=== PATIENT | male | born 1945 | race Caucasian/White ===

== ENCOUNTER 2017-09-21 17:59 | Emergency (ER) | payer BC ==
[2017-09-21 18:17] VITALS: TEMP 98.2
--- NOTE | 2017-09-21 18:43 | CPEKG ---
Heart Rate: 84 RR Interval: 714 P-R Interval: 160 QRSD Interval: 116 QT Interval: 404 QTC Interval: 478 P Alma: 52 QRS Alma: 52 T Wave Alma: 47 EKG Severity - ABNORMAL ECG - EKG Impression: SINUS RHYTHM EKG Impression: NONSPECIFIC INTRAVENTRICULAR CONDUCTION DELAY EKG Impression: MINIMAL ST DEPRESSION, ANTEROLATERAL LEADS Electronically Signed By: Elinor Payne 21-Sep-2017 20:36:44
--- NOTE | 2017-09-21 18:49 | EDPHY ---
H & P Time Seen by Provider: 09/21/17 18:39 HPI/ROS: CHIEF COMPLAINT: Abnormal EKG HISTORY OF PRESENT ILLNESS: Patient is a 72-year-old male with a history of high cholesterol hypertension who presents to the emergency department with an abnormal EKG. The patient went in for his routine annual physical exam. Was sent home from the physician's office and then called because he had abnormal EKG. Patient reports a recent gout flare for the last 3 days. Is primarily in his ankles. Patient has had minimal shortness of breath. No cough. No fever. The patient denies chest pain. No nausea, vomiting or diaphoresis. Patient denies any calf pain or swelling. He has had mild ankle pain and swelling which he attributes to his gouty flare REVIEW OF SYSTEMS: My complete review of systems is negative except as mentioned in the HPI. Past Medical/Surgical History: Includes gout, high cholesterol, hypertension, BPH Smoking Status: Never smoked Physical Exam: Vitals noted GENERAL: Well-appearing, in no acute distress, alert. HEENT: Eyes normal to inspection, normal pharynx, no signs of dehydration. NECK: No thyromegaly, no lymphadenopathy, supple. RESPIRATORY: Clear to auscultation bilaterally, no rales, rhonchi or wheezing. CVS: Regular rate and rhythm, no rubs, murmurs, or gallops. ABDOMEN: Soft, nontender, nondistended, no organomegaly. BACK: Normal to inspection, no CVA tenderness. SKIN: Normal color, no rash, warm, dry. No pallor. EXTREMITIES: No pedal edema, no calf tenderness, no Homans sign or cords, mild right ankle swelling. NEURO/PSYCH: Alert and oriented x3, normal mood and affect, normal motor sensory exam. Constitutional: Initial Vital Signs Temperature (C) 36.8 C 09/21/17 18:14 Heart Rate 89 09/21/17 18:14 Respiratory Rate 18 09/21/17 18:14 Blood Pressure 138/82 H 09/21/17 18:14 O2 Sat (%) 96 09/21/17 18:14 O2 Delivery Mode Room Air Allergies/Adverse Reactions: No Known Allergies Allergy (Verified 09/21/17 18:11) Home Medications: Medication Instructions Recorded Avodart 11/23/09 Lisinopril/Hctz 10 mg/12.5 mg 11/23/09 Allopurinol 09/21/17 Atorvastatin Calcium 09/21/17 Dustasteride 09/21/17 Meloxicam 09/21/17 Medical Decision Making ED Course/Re-evaluation: In the emergency department I discussed possible etiologies with patient. I answered all his questions. IV was placed. Laboratory studies were obtained. Patient was given aspirin 325 mg orally. An EKG was obtained EKG: Sinus rhythm at 84. Normal axis. Normal intervals. Minimal ST depression V4 through V6 Troponin negative. CBC and chemistry unremarkable. I discussed the laboratory results with the patient. I paged Cardiology. I discussed the EKG with Dr. Andino from Cardiology. He recommended the patient be discharged and be seen as an outpatient this week. Patient had a CT of his chest. I intended to order chest x-ray but is CT scan was ordered. I discussed this with the patient. He felt the patient could follow up in clinic. I discussed this with the patient. He was asymptomatic. He was given warnings prior to leaving. He will return with worsening symptoms. Differential Diagnosis: Differential includes but is not limited to ACS, acute PR, pericarditis, myocarditis, pulmonary embolus - Data Points Laboratory Results: Laboratory Results 09/21/17 19:00 09/21/17 19:00 09/21/17 09/21/17 19:00 19:00 WBC 8.41 10^3/uL 10^3/uL (3.80-9.50) RBC 5.04 10^6/uL 10^6/uL (4.40-6.38) Hgb 16.2 g/dL g/dL (13.7-17.5) Hct 46.0 % % (40.0-51.0) MCV 91.3 fL fL (81.5-99.8) MCH 32.1 pg pg (27.9-34.1) MCHC 35.2 g/dL g/dL (32.4-36.7) RDW 12.5 % % (11.5-15.2) Plt Count 309 10^3/uL 10^3/uL (150-400) MPV 9.0 fL fL (8.7-11.7) Neut % (Auto) 61.7 % % (39.3-74.2) Lymph % (Auto) 27.1 % % (15.0-45.0) Stephenson % (Auto) 7.1 % % (4.5-13.0) Eos % (Auto) 3.1 % % (0.6-7.6) Baso % (Auto) 0.8 % % (0.3-1.7) Nucleat RBC Rel Count 0.0 % % (0.0-0.2) Absolute Neuts (auto) 5.18 10^3/uL 10^3/uL (1.70-6.50) Absolute Lymphs (auto) 2.28 10^3/uL 10^3/uL (1.00-3.00) Absolute Monos (auto) 0.60 10^3/uL 10^3/uL (0.30-0.80) Absolute Eos (auto) 0.26 10^3/uL 10^3/uL (0.03-0.40) Absolute Basos (auto) 0.07 10^3/uL 10^3/uL (0.02-0.10) Absolute Nucleated RBC 0.00 10^3/uL 10^3/uL (0-0.01) Immature Gran % 0.2 % % (0.0-1.1) Immature Gran # 0.02 10^3/uL 10^3/uL (0.00-0.10) Sodium 139 mEq/L mEq/L (134-144) Potassium 3.8 mEq/L mEq/L (3.5-5.2) Chloride 101 mEq/L mEq/L (97-110) Carbon Dioxide 23 mEq/l mEq/l (22-31) Anion Gap 15 mEq/L mEq/L (8-16) BUN 14 mg/dL mg/dL (7-23) Creatinine 0.9 mg/dL mg/dL (0.7-1.3) Estimated GFR > 60 Glucose 97 mg/dL mg/dL (70-100) Calcium 10.1 mg/dL mg/dL (8.5-10.4) Troponin I < 0.012 ng/mL ng/mL (0.000-0.034) Medications Given: Discontinued Medications Aspirin (Aspirin) 324 mg PO EDNOW ONE Stop: 09/21/17 18:51 Last Admin: 09/21/17 18:57 Dose: 324 mg Departure - Departure Disposition: Home, Routine, Self-Care Clinical Impression: Abnormal EKG Condition: Good Instructions: Chest Pain (ED), Gout (ED) Additional Instructions: Return with increasing chest pain, shortness of breath or any other concerns. You need close follow-up with Cardiology this week. Take an aspirin daily. Referrals: Daniele Andino MD [Medical Doctor] - 2-3 days without fail
[2017-09-21] MEDS ORDERED: ASPIRIN 81 MG CHEWABLE TAB PO ONE (18:50)
[2017-09-21 19:35] LABS: ANION GAP 15 mEq/L (8-16); CALCIUM 10.1 mg/dL (8.5-10.4); CARBON DIOXIDE 23 mEq/l (22-31); CHLORIDE 101 mEq/L (97-110); CREATININE 0.9 mg/dL (0.7-1.3); GLOMERULAR FILTRATION RATE > 60; GLUCOSE 97 mg/dL (70-100); POTASSIUM 3.8 mEq/L (3.5-5.2); SODIUM 139 mEq/L (134-144)
[2017-09-21 19:47] LABS: TROPONIN I < 0.012 ng/mL (0.000-0.034)
[2017-09-21 20:03] LABS: % IMMATURE GRANULYOCYTES 0.2 % (0.0-1.1); ABSOLUTE IMMATURE GRANULOCYTES 0.02 10^3/uL (0.00-0.10); ADD DIFF? NO; ADD MORPH? NO; ADD SCAN? NO; ATYPICAL LYMPHOCYTE FLAG 0 (0-99); FRAGMENT RBC FLAG 0 (0-99); HEMOGLOBIN 16.2 g/dL (13.7-17.5); LEFT SHIFT FLG 0 (0-99); LIPEMIA HEMOLYSIS FLAG 90 (0-99); MEAN CELL HEMOGLOBIN 32.1 pg (27.9-34.1); MEAN CELL HEMOGLOBIN CONCENTR. 35.2 g/dL (32.4-36.7); MEAN CELL VOLUME 91.3 fL (81.5-99.8); PLATELET CLUMPS FLAG 0 (0-99); PLATELET COUNT 309 10^3/uL (150-400); RED BLOOD CELL COUNT 5.04 10^6/uL (4.40-6.38); RED CELL DISTRIBUTION WIDTH 12.5 % (11.5-15.2)
[2017-09-21 20:16] VITALS: RESP 16
[2017-09-21 21:09] VITALS: BP 150/80; PULSE 67; O2SAT 95
== END 2017-09-21 21:10 | disposition home or self-care (01) ==
DX: R94.31 Abnormal electrocardiogram [ECG] [EKG] (principal); I10 Essential (primary) hypertension

== ENCOUNTER → 2017-09-21 | Outpatient (CLI) | payer BC | LOC: BMCIMAGING 15:02 | PROVIDERS: ATTEND Internal Medicine | DX: R06.02 Shortness of breath (principal) ==